=== PATIENT | female | born 1940 | race Caucasian/White ===

== ENCOUNTER → 2017-06-24 | Outpatient (CLI) | payer OTHER ==
[~2017-06-24] MED LIST: B-COTAB18 PO; CALC1TAB25 PO; CHOL1000 PO; COEN100C7 PO; CYAN1DRO PO; GLUCTAB7 PO; MISCCAP80 PO; TRACE MINERAL PO; TURMPOW2 PO; [UNRECOGNIZED DRUG - CODE] PO; [UNRECOGNIZED DRUG - CODE] PO; [UNRECOGNIZED DRUG - OTHER] PO; [UNRECOGNIZED DRUG - OTHER] PO; [UNRECOGNIZED DRUG - OTHER] VA
[2017-06-24 13:13] LABS: BLOOD UREA NITROGEN 14 mg/dl (7-18); CHOLESTEROL 200 mg/dl (0-200); CHOLESTEROL/HDL RATIO 3.3; CREATININE 0.72 mg/dl (0.60-1.20); GLUCOSE,FASTING 86 mg/dl (70-99); HDL CHOLESTEROL 61 mg/dl; LDL CHOLESTEROL CALCULATED 126 mg/dl; TRIGLYCERIDES 63 mg/dl (0-150); VERY LOW DENSITY LIPOPROT CALC 13 mg/dl
== END | disposition home or self-care (01) ==
LOC: C.LABMFLN 09:21
PROVIDERS: ATTEND Family Medicine
DX: R10.32 Left lower quadrant pain (principal); E78.5 Hyperlipidemia, unspecified

== ENCOUNTER → 2017-09-08 | Outpatient (CLI) | payer OTHER ==
--- NOTE | 2017-09-08 10:10 | DIAGNOSTIC IMAGING REPORT ---
L UPPER EXT JOINT WITHOUT CLINICAL HISTORY: 77 years-old Female presenting with LEFT SHOULDER PAIN, clinical concern for rotator cuff tear. TECHNIQUE: Multisequence, multiplanar MR imaging of the left shoulder was performed without the use of intravenous contrast. IV contrast: None. COMPARISON: None. FINDINGS: Localizer images: Unremarkable. Heterogeneity of fat suppression likely accounts for increased signal intensity. No convincing evidence of bony edema. Minimal cystic change at the greater tuberosity suggest chronic impingement. Glenohumeral articular cartilage demonstrates minimal cartilage loss in the midportion of the glenoid. The labrum is intact. The biceps labral complex demonstrates minimal increased signal intensity at anterior suggesting degenerative change. No focal tear. Long head of the biceps tendon well seated within the intertubercular groove. Short head of biceps tendon intact. Full-thickness tear of the anteriormost critical zone fibers of the supraspinatus with diffuse abnormal signal intensity of the mid to posterior critical zone fibers of the supraspinatus consistent with tendinosis. Tendinosis of the infraspinatus also evident. Teres minor tendon intact. Thickening and abnormal signal intensity of the subscapularis consistent with tendinosis. Transversely midportion of the subscapularis tendon intact. No significant joint effusion. Normal muscle bulk and muscle signal intensity. IMPRESSION: 1. Full-thickness tear of anterior most critical zone fibers of the supraspinatus with significant tendinosis of the remainder of the supraspinatus as well as the infraspinatus and subscapularis. 2. Minimal cystic change of the greater tuberosity could suggest chronic impingement. 3. Minimal cartilage loss of the midportion of the glenoid. Electronically signed by: Tomas Sutherland M.D. 09/08/2017 10:08 AM Dictated Date/Time: 09/08/2017 9:54 AM
== END | disposition home or self-care (01) ==
LOC: C.MRIBC 08:49
PROVIDERS: ATTEND Orthopaedic Surgery
DX: M75.102 Unspecified rotator cuff tear or rupture of left shoulder, not specified as traumatic (principal)

== ENCOUNTER → 2017-10-09 | Outpatient (CLI) | payer OTHER ==
[2017-10-09 12:30] LABS: BASO % 0.5 %; BASO ABS # 0.03 K/uL (0-0.2); EOS % 3.9 %; EOS ABS # 0.22 K/uL (0-0.5); HEMATOCRIT 42.6 % (37-47); HEMOGLOBIN 14.4 g/dL (12.0-16.0); IG# 0.02 K/uL (0.00-0.02); LYMPH % 34.3 %; LYMPH ABS # 1.92 K/uL (1.2-3.4); MEAN CELL VOLUME 91.4 fL (80-100); MEAN CORPUSCULAR HEMOGLOBIN 30.9 pg (25-34); MEAN CORPUSCULAR HGB CONC 33.8 g/dl (32-36); MEAN PLATELET VOLUME 9.8 fL (7.4-10.4); MONO % 9.3 %; MONO ABS # 0.52 K/uL (0.11-0.59); NEUT % 51.6 %; NEUT ABS # 2.88 K/uL (1.4-6.5); PLATELET COUNT 235 K/uL (130-400); RED CELL DISTRIBUTION WIDTH CV 13.9 % (11.5-14.5); RED CELL DISTRIBUTION WIDTH SD 46.2 fL (36.4-46.3); WHITE BLOOD COUNT 5.59 K/uL (4.8-10.8)
[2017-10-09 13:07] LABS: BLOOD UREA NITROGEN 13 mg/dl (7-18); CALCIUM 8.8 mg/dl (8.5-10.1); CARBON DIOXIDE 29 mmol/L (21-32); CREATININE 0.76 mg/dl (0.60-1.20); GLUCOSE 87 mg/dl (70-99); SODIUM 139 mmol/L (136-145)
== END | disposition home or self-care (01) ==
LOC: C.LABMFLN 07:23
PROVIDERS: ATTEND Orthopaedic Surgery
DX: M25.512 Pain in left shoulder (principal)

== ENCOUNTER → 2017-10-29 | Day surgery (SDC) | payer OTHER ==
[2017-10-26 11:40] VITALS: Ht 158.8 cm; Wt 55.5 kg
[~2017-10-29] VITALS: Ht 158.8 cm; Wt 55.5 kg
[~2017-10-29] MED LIST changes: +ATROPINE SULFATE 0.1 MG/ML 5ML SYR IV PRN; +BUPIVACAINE 0.25% 30 ML VIAL ONE; +CEFAZOLIN 1000MG IV PUSH 7.5 ML IV SCH; +DEXAMETHASONE SOD INJ 4 MG/ML VIAL ONE; +EpHEDrine SULFATE INJ 50 MG/ML AMP IV PRN; +EpINEphrine INJ 1MG/ML AMP 1 MG/ML AMP ONE; +FENTANYL CITRATE INJ 50 MCG/1 ML 2 ML VIAL IV PRN; +FENTANYL CITRATE INJ 50 MCG/1 ML 2 ML VIAL ONE; +FLUMAZENIL 0.1 MG/1 ML 10 ML VIAL IV PRN; +HYDROmorphone INJ 2 MG/ML SYR/VIAL IV PRN; +KETO10TA PO; +KETOROLAC TROMETHAMINE 30 MG/ML VIAL IV. PRN; +LABETALOL HCL IV 5 MG/ML 20ML IV PRN; +LACTATED RINGER'S 1000ML 1,000 ML IV SCH; +LIDOCAINE HCL 2% 2 ML VIAL (20MG/ML) ONE; +MEPERIDINE HCL 25 MG/ML CARP IV PRN; +MIDAZOLAM HCL 1 MG/ML 2ML VIAL ONE; +NALOXONE HCL 0.4 MG/1 ML VIAL/CARP IV PRN; +ONDANSETRON INJ 2 MG/ML 2 ML VIAL IV PRN; +ONDANSETRON INJ 2 MG/ML 2 ML VIAL ONE; +OXYC-57 PO; +OXYCODONE/ACETAMINOPHEN 5-325 TAB PO PRN; +PHENYLEPHRINE 100MCG/ML 5ML SYR IV PRN; +PHENYLEPHRINE HCL INJ 10 MG/ML VIAL ONE; +PROPOFOL IV EMULSION 10 MG/ML 20 ML VIAL IV ONE; +ROPIVACAINE 0.5% 5 MG/ML 30 ML VIAL ONE; +SODIUM CHLORIDE 0.9% 1000ML 1,000 ML IV SCH
--- NOTE | 2017-10-29 09:49 | History & Physical Bridge Note ---
H&P Re-Evaluation Bridge Note: I have examined the patient, reviewed the History & Physical and in the interval since the performance of the History & Physical I have noted the following changes of clinical significance: No changes noted
--- NOTE | 2017-10-29 11:43 | [facility] Post Operative Brief Note ---
Immediate Operative Summary Operative Date Oct 29, 2017. Pre-Operative Diagnosis Shoulder Pain, full thickness rotator cuff tear, left shoulder Post-Operative Diagnosis same as preop Procedure(s) Performed Left Shoulder Arthroscopy With Medium Rotator Cuff Repair, Biceps tenodesis Surgeon Dr. Hahn Unit [employer] Surgeon(s) Michelle Zendejas PA-C Estimated Blood Loss 5ml Findings Consistent with Post-Op Diagnosis Specimens none Drains None Anesthesia Type General Regional Disposition Disposition: Recovery Room / PACU
--- NOTE | 2017-10-29 11:58 | Discharge Instructions-SurgCtr ---
Discharge Instructions Date of Service Oct 29, 2017. Visit Reason for Visit: Shoulder Pain Full Thickness Rotator Cuff Tear Discharge Discharge Diagnosis / Problem: SAME ABOVE Discharge Goals Goal(s): Decrease discomfort, Improve function Activity Recommendations Activity Limitations: as noted below Lifting Limitations: until after follow-up appointment Exercise/Sports Limitations: until after follow-up appointment Shower/Bathe: tomorrow Anesthesia . Post Anesthesia Instructions: If you have had General Anesthesia or IV Sedation: * Do not drive today. * Resume driving when surgeon permits. * Do not make important decisions or sign legal documents today. * Call surgeon for: 1. Temperature elevations greater than 101 degrees F. 2. Uncontrollable pain. 3. Excessive bleeding. 4. Persistent nausea and vomiting. 5. Medication intolerance (nausea, vomiting or rash). * For nausea and vomiting use only clear liquids such as: tea, soda, bouillon until nausea subsides, then gradually increase diet as tolerated. * If you have any concerns or questions, call your surgeon's office. If physician is unavailable and it is an emergency, call 911 or go to the nearest emergency room. . Instructions / Follow-Up Instructions / Follow-Up MEDICATIONS: * Resume previous medications unless instructed otherwise by your surgeon. * Always take pain medication on a full stomach or with food to avoid upset stomach. * Do not drink alcohol or drive while taking narcotics. * Ibuprofen or Tylenol may be taken if narcotic not needed. SPECIAL CARE INSTRUCTIONS: __ None _X_ Keep extremity elevated and iced x 48 hours; apply ice 20-30 minutes 8-10 times/day. May remove at night. __ Sling __24 hrs/day __ Remove at night _X_ Shoulder Immobilizer (MAY REMOVE AFTER 48 HOURS ONLY TO SHOWER AND FOR THERAPY) _X_ 24 hrs/day __ Remove at night _X_ Dressing __ Maintain until seen in office, may shower with plastic over site _X_ Remove dressings in 24-48 hours and then may shower _X_ Cover incisions with band-aids after showering __ Do not remove steri-strips Call physician if chills or temperature rises above 102 degrees or pain unrelieved by prescribed pain medications at . . Diet Recommendations Home Diet: no limitations Fluid Restriction: None Procedures Procedures Performed: Left Shoulder Arthroscopy With Medium Rotator Cuff Repair, Biceps tenodesis Pending Studies Studies pending at discharge: no Work Instructions Return To Work: after follow-up Lifting Limitations: NO LIFTING WITH LEFT SHOULDER Medical Emergencies . Who to Call and When: Medical Emergencies: If at any time you feel your situation is an emergency, please call 911 immediately. . Non-Emergent Contact Non-Emergency issues call your: Primary Care Provider Call Non-Emergent contact if: you have a fever, temperature is above 101.5 . . "Provider Documentation" section prepared by Froilan Zendejas. .
--- NOTE | 2017-10-29 12:27 | Anesthesia Progress Nt - [facility] ---
Anesthesia Post Op Note Date & Time Oct 29, 2017 at 12:27 Vital Signs Pain Intensity: 0 Vital Signs Past 12 Hours Date Time Temp Pulse Resp B/P (MAP) Pulse Ox O2 Delivery O2 Flow Rate FiO2 10/29/17 12:03 79 18 10/29/17 12:03 77 18 99 10/29/17 12:01 125/62 10/29/17 11:58 77 13 99 10/29/17 11:58 77 13 10/29/17 11:56 142/68 10/29/17 11:55 137/69 10/29/17 11:53 36.3 78 14 137/69 98 Mask 6 10/29/17 10:18 89 10/29/17 10:18 89 13 99 10/29/17 10:17 116/65 10/29/17 10:16 90 13 98/54 99 10/29/17 10:16 88 10/29/17 10:11 77 4 124/70 100 10/29/17 10:11 77 10/29/17 10:06 80 24 125/72 94 10/29/17 10:06 80 10/29/17 10:01 74 0 10/29/17 09:56 78 0 10/29/17 09:12 37.0 83 16 111/71 (84) 97 Room Air Notes Mental Status: alert / awake / arousable, participated in evaluation Pt Amnestic to Procedure: Yes Nausea / Vomiting: adequately controlled Pain: adequately controlled Airway Patency, RR, SpO2: stable & adequate BP & HR: stable & adequate Hydration State: stable & adequate Anesthetic Complications: no major complications apparent
[2017-10-29 13:03] VITALS: TEMP 36.6
[2017-10-29 13:30] VITALS: BP 134/74; PULSE 69; O2SAT 95
--- NOTE | 2017-10-29 14:58 | OPERATIVE REPORT ---
DATE OF OPERATION: 10/29/2017 PREOPERATIVE DIAGNOSIS: Medium-sized left rotator cuff tear. POSTOPERATIVE DIAGNOSIS: Same. PROCEDURE: Left shoulder diagnostic arthroscopy with limited debridement, acromioplasty, medium-sized rotator cuff repair and arthroscopic biceps tenodesis. SURGEON: Dr. Bradley Hahn. ACTIVITIES ATTENDANT: Froilan Zendejas PA-C, whose assistance was necessary for positioning the arm and helping with arthroscopic instrumentation. ANESTHESIA: General with a left interscalene nerve block. COMPLICATIONS: None. CONDITION: Stable to PACU. INDICATIONS: Halima is a pleasant 77-year-old female who has been having a 6-month history of left shoulder pain. She denies any trauma. MRI and clinical examination were diagnostic for a severe external impingement with medium-sized rotator cuff tear. After failing conservative treatment, she elected to undergo arthroscopy. DESCRIPTION OF PROCEDURE: On 10/29/2017, she arrived at [facility] for the above procedure. She was seen in the preoperative holding and the operative extremity was identified and signed. She was given a preoperative antibiotic and a left interscalene nerve block. She was taken back to the operating room, laid on the table in supine position and put under general anesthesia. She was then put into the beachchair position. The left shoulder was prepped and draped in sterile fashion. Time-out was done. The patient and the operative extremity was properly identified. The scope was placed in the posterior portal. Diagnostic arthroscopy showed no cartilage damage to the humeral head or the glenoid. There was some fraying of the anterior labrum. The biceps tendon was intact, but was a little bit frayed. There was a tear of the entire supraspinatus, infraspinatus and teres minor and subscapularis were all checked and intact. An anterior portal was made. A shaver was used to do a limited debridement of the intraarticular structures and the biceps tendon was arthroscopically tenotomized for later tenodesis. The scope was then put into the subacromial space. A lateral portal was made. A shaver was used to do a complete subacromial and subdeltoid bursectomy. An ablator was used to tease the coracoacromial ligament off the undersurface of the acromion and a 5-0 elsa was used to complete an acromioplasty of a Bigliani type 2 acromion. The shaver was used to remove any excess debris and attention was turned to the rotator cuff. An additional anterolateral portal was made and Almaz cannulas were placed in each of the lateral portals. The greater tuberosity was prepared with a ring curette and microfracture. It was a crescent-shaped medium-sized rotator cuff tear involving the biceps logan mechanism and extending posteriorly. The rotator cuff was then fixed with an Arthrex SpeedBridge configuration using 4.75 mm BioComposite SwiveLock suture anchors and FiberTapes. This gave excellent repair. Multiple pictures were taken. The long head of the biceps tendon was tagged with a FiberLink and incorporated into the anterior lateral anchor. This completed an arthroscopic biceps tenodesis. The scope was then placed back into the glenohumeral joint and the articular margin of the rotator cuff had been restored. Pictures were taken. Arthroscopic instruments were removed from the shoulder. Portal sites were closed with 3-0 nylon. She was then placed in a soft dressing and abduction arm sling. She was then extubated, transferred to a litter and taken to the postanesthesia care unit in stable condition. She tolerated the procedure well. I attest to the content of the Intraoperative Record and any orders documented therein. Any exception s are noted below.
== END | disposition home or self-care (01) ==
LOC: X.SURG 08:58
PROVIDERS: ATTEND Orthopaedic Surgery
DX: M75.102 Unspecified rotator cuff tear or rupture of left shoulder, not specified as traumatic (principal); I34.1 Nonrheumatic mitral (valve) prolapse; K44.9 Diaphragmatic hernia without obstruction or gangrene; Z82.49 Family history of ischemic heart disease and other diseases of the circulatory system; Z82.3 Family history of stroke